=== PATIENT | male | born 1985 | race Caucasian/White ===

== ENCOUNTER 2018-02-08 07:59 | Emergency (ER) | payer OTHER ==
[~2018-02-08] VITALS: Ht 185.4 cm; Wt 126.5 kg
[~2018-02-08 07:59] MED LIST: ALEVE220 M2 PO; BUPROPION XL300 MG PO; EXCEDRIN EXTRA1 EACH PO; LEXAPRO20 MG PO; NAPROSYN500 MG PO; NUVIGIL150 MG PO; PREDNISONE50 MG PO; QUETIAPINE FUM200 MG PO
[2018-02-08 08:36] LABS: HEMATOCRIT 45.2 % (38.0-50.0); HEMOGLOBIN 15.7 G/DL (12.5-16.6); MCH 29.8 PG (29.0-34.0); MCHC 34.7 G/DL (30.0-36.0); MCV 85.9 FL (86-99); PLATELET COUNT 257 K/uL (156-360); RBC DIS.WIDTH-CV 11.9 % (11.8-14.6); RBC DIS.WIDTH-SD 37.5 % (39-53); RED BLOOD COUNT 5.26 M/uL (4.00-5.50); WHITE BLOOD COUNT 10.6 K/uL (4.1-10.2)
[2018-02-08 08:39] LABS: CHLORIDE 103 mEq/L (99-109); POTASSIUM 3.7 mEq/L (3.7-5.4); SODIUM 138 mEq/L (136-147)
[2018-02-08 08:41] LABS: GLUCOSE 119 mg/dL (70-99)
[2018-02-08 08:45] LABS: CREATININE 0.9 mg/dL (0.6-1.3); GFR ESTIMATE (CALCULATED) > 59 mL/min/ (58.99-99999); UREA NITROGEN (BUN) 15 mg/dL (9-23)
[2018-02-08 08:51] LABS: TROP-I INTERPRETATION NEGATIVE; TROPONIN-I < 0.01 ng/mL (0.0-0.30)
[2018-02-08] MEDS ORDERED: BENADRYL50 MG PO (09:41)
[2018-02-08] MEDS ORDERED: MEDROL DOSEPAK4 MG PO (09:41)
[2018-02-08] MEDS ORDERED: PEPCID20 MG PO (09:41)
[2018-02-08 09:43] VITALS: BP 133/77
== END 2018-02-08 09:53 | disposition home or self-care (01) ==
LOC: EME 07:59
PROVIDERS: Physician Assistant
DX: T78.40XA Allergy, unspecified, initial encounter (principal); R03.0 Elevated blood-pressure reading, without diagnosis of hypertension; F17.200 Nicotine dependence, unspecified, uncomplicated
CPT/HCPCS: 71046; 80048; 84484; 85027; 93005; 99281; 99285; J1100; J1200; J7030; S0028